=== PATIENT | male | born 1940 | race Caucasian/White ===

== ENCOUNTER → 2017-01-10 | Day surgery (SDC) | payer MEDICARE, OTHER ==
[~2017-01-10] MED LIST: Lactated Ringers 1,000 ML IV SCH; Propofol 200 MG/20 ML SDV IV ONE
[2017-01-10 09:10] VITALS: BP 120/65
--- NOTE | 2017-01-10 12:52 | OR ---
DATE OF OPERATION: 01/10/2017 PREOPERATIVE DIAGNOSIS: SCREENING COLONOSCOPY. POSTOPERATIVE DIAGNOSIS: SCREENING COLONOSCOPY. SURGEON: Yuri Pedraza MD PROCEDURE: FOLLOWING COLONOSCOPY WITH POLYP REMOVAL X2. ANESTHESIA: NUCLEAR TECHNICIAN. COMPLICATIONS: None. SPECIMEN: Tubular adenoma x2. FINDINGS: 1. Full-length colonoscopy. 2. Mild sigmoid diverticulosis. 3. Tubular adenoma x2. RECOMMENDATIONS: Followup colonoscopy in 5 years. INDICATIONS: The patient was in for routine physical. He is due for a screening colonoscopy. DESCRIPTION OF PROCEDURE: The patient was prepped and draped, placed in the left lateral decubitus position. A lubricated Olympus colonoscope was inserted and easily advanced to the cecum. Direct visualization of the ileocecal valve and appendiceal orifice was accomplished. The bowel prep was fine. Upon withdrawal of the scope but just outside the cecal pouch, the patient had a small tubular adenoma easily removed with a snare and suctioned into polyp trap #1. The rest of the ascending colon was benign. At the distal transverse colon, the patient had another small flat tubular adenoma, removed in its entirety with 2 cold forceps biopsies. The descending colon was unremarkable. The patient does have scattered diverticula throughout the sigmoid colon, very mild in severity. No inflammatory changes seen. The sigmoid and rectosigmoid area had no other signs of polyps, masses, ulcerations, or bleeding sites. No vascular abnormalities or signs of colitis. The rectal vault was unremarkable. Retroflexion of scope in the rectum showed no anal lesions. Air was then suctioned, and the scope was removed without complication. ALVARO/RICHAR /[id number]
== END ==
LOC: CC.SDS 07:22
PROVIDERS: ATTEND Family Medicine
DX: Z12.11 Encounter for screening for malignant neoplasm of colon (principal); D12.0 Benign neoplasm of cecum; D12.3 Benign neoplasm of transverse colon; K57.30 Diverticulosis of large intestine without perforation or abscess without bleeding; I10 Essential (primary) hypertension; N42.9 Disorder of prostate, unspecified; Z79.82 Long term (current) use of aspirin; Z79.899 Other long term (current) drug therapy; Z98.49 Cataract extraction status, unspecified eye; Z90.89 Acquired absence of other organs
CPT/HCPCS: 45380; 45385; J2704; J7120; 00810; 88305